=== PATIENT | female | born 1990 | race Hispanic/Latino ===

== ENCOUNTER 2017-02-16 21:01 | Observation (INO) | payer SELFPAY ==
[2017-02-16 21:39] LABS: #Basophils 0.1 thou/uL (0.0-0.2); #Eosinphils 0.3 thou/uL (0.0-0.7); #Lymphocytes 1.7 thou/uL (1.20-3.40); #Monocytes 0.3 thou/uL (0.11-0.59); #Neutrophils 5.5 thou/uL (1.40-6.50); %Basophils 0.8 % (0.0-1.0); %Eosinophils 4.2 % (0.0-10.0); %Lymphocytes 21.1 % (21.0-51.0); %Monocytes 3.3 % (0.0-10.0); Hematocrit 21.6 % (36.0-47.0); Mean Platelet Volume 8.7 fL (7.4-10.4); Red Blood Cell (RBC) Count 2.36 mill/uL (4.20-5.40); White Blood Cell (WBC) Count 7.8 thou/uL (4.8-10.8)
[2017-02-16 21:50] LABS: ALT (SGPT) 18 U/L (8-55); AST (SGOT) 17 U/L (5-34); Alkaline Phosphatase 70 U/L (40-150); Anion Gap 10 mmol/L (10-20); BUN (Urea Nitrogen) 10 mg/dL (7.0-18.7); Bilirubin, Total 0.3 mg/dL (0.2-1.2); Calc. Creatinine Clearance 0 mL/min (70-130); Calcium 8.9 mg/dL (7.8-10.44); Carbon Dioxide 26 mmol/L (22-29); Chloride 109 mmol/L (98-107); Estimated GFR-MDRD Greater than 90; Globulin 3.1 g/dL (2.4-3.5); Protein, Total 6.8 g/dL (6.0-8.3)
[2017-02-16 22:55] LABS: Bilirubin Negative (Negative); Blood, Urine Large (Negative); Glucose, Urine (Dipstick) Negative (Negative); Ketone, Urine Trace mg/dL (Negative); Nitrite Negative (Negative); Protein, Urine (Dipstick) Negative (Neg-Trace); Urobilinogen 0.2 mg/dL (0.2-1.0)
[2017-02-16 23:01] LABS: Bacteria/HPF Rare-Few HPF (None Seen); RBC/HPF GREATER THAN 50-TNTC HPF (0-3); Squamous Epithelial 0-3 HPF (0-3); WBC/HPF 0-3 HPF (0-3)
[2017-02-16 23:02] LABS: Hyaline Casts/LPF 0-3 HYALINE CAST LPF (0-3 Hyaline)
[2017-02-16] MEDS ORDERED: Tranexamic Acid 650 MG TAB PO SCH (23:30)
[2017-02-16] MEDS ORDERED: medroxyPROGESTERone Acetate 5 MG TAB PO SCH (23:45)
[2017-02-17] MEDS ORDERED: Zolpidem Tartrate 5 MG TAB PO PRN (01:04)
[2017-02-17] MEDS ORDERED: Ondansetron HCl/PF 4 MG/2 ML Vial IVP PRN (01:04)
[2017-02-17] MEDS ORDERED: Acetaminophen 325 MG TAB PO PRN (01:04)
--- NOTE | 2017-02-17 01:15 | HP ---
DATE OF ADMISSION: 02/16/2017 TIME: 2330 hours. REASON FOR ADMISSION: Menorrhagia with severe anemia, hemodynamically stable. HISTORY OF PRESENT ILLNESS: Ms. Talavera is a 26-year-old 2, para 2, well known to the [facility] with previous admissions for menorrhagia. She presents again complaining of menorrhagia for the last 29 days. She is noted to have a hematocrit of 21%. Her vital signs are stable. She has a ne gative tilt. OB AND BEEF RIBBER HISTORY: x2. No history of STDs. Patient has multiple ER presentations to both the [facility] and at [facility] with a previous admissions. She has been seen on an outpatient basis and been recommended to have a progesterone releasing IUD; however, she seems to have problems with compliance, likely secondary to financial difficulties. PAST MEDICAL HISTORY: Anemia and transfusions, multiple. PAST SURGICAL HISTORY: Jaw fracture. ALLERGIES: Denies. MEDICATIONS: Sprintec and iron. SOCIAL HISTORY: Denies tobacco, alcohol, or drug abuse. FAMILY HISTORY: Noncontributory. REVIEW OF SYSTEMS: Noncontributory. PHYSICAL EXAMINATION: GENERAL: female, pulse 100, respirations 18, blood pressure 118/72, temperature 98.6. HEENT: Within normal limits. LUNGS: Clear to auscultation bilaterally. HEART: Regular rhythm. BREASTS: Without masses bilaterally. ABDOMEN: Soft, nontender, no rebound, or guarding. PELVIC: Vulva is without lesions. Vagina has moderate menstrual flow. Pelvic, deferred at this ti me. EXTREMITIES: Without clubbing, cyanosis, or edema. LABORATORY STUDIES AND IMAGING: The patient has a hemoglobin of 6.9, hematocrit of 21.6, normal whi te count, platelet count of 300. Normal basic metabolic panel and unremarkable urinalysis. PT, PTT , and INR are not done. Previous ultrasounds were reviewed and reveal a slightly thickened endometr ium, but otherwise unremarkable. IMPRESSION: Persistent menorrhagia with anemia. PLAN: Observation status, Provera, Lysteda, IV iron. Anticipate discharge in less than [address] admission.
[2017-02-17] MEDS ORDERED: Sodium Chloride 0.9% 10 ML ONE ×3 (01:21→11:29)
[2017-02-17] MEDS: Sodium Chloride 0.9% 1,000 ML IV SCH ×2 (01:27→13:04)
[2017-02-17 02:09] VITALS: BMI 35.9
[2017-02-17 05:29] LABS: #Eosinphils 0.3 thou/uL (0.0-0.7); #Lymphocytes 2.1 thou/uL (1.20-3.40); #Monocytes 0.4 thou/uL (0.11-0.59); #Neutrophils 4.2 thou/uL (1.40-6.50); %Basophils 0.4 % (0.0-1.0); %Eosinophils 4.9 % (0.0-10.0); %Lymphocytes 29.9 % (21.0-51.0); %Monocytes 5.5 % (0.0-10.0); Mean Platelet Volume 8.8 fL (7.4-10.4); Red Blood Cell (RBC) Count 2.19 mill/uL (4.20-5.40); White Blood Cell (WBC) Count 7.1 thou/uL (4.8-10.8)
[2017-02-17 05:38] LABS: PTT 31.3 SEC (22.9-36.1)
[2017-02-17 05:42] LABS: Prothrombin Time 14.7 SEC (12.0-14.7)
--- NOTE | 2017-02-17 07:52 | PRG ---
DATE OF SERVICE: 02/17/2017 TIME OF SERVICE: 0730 SUBJECTIVE: The patient is resting well. She reports fatigue and shortness of breath when ambulati ng to the bathroom. She reports that her bleeding has decreased, but continues somewhat. PHYSICAL EXAMINATION: VITAL SIGNS: Temperature is 98.0, pulse 78, respirations 20, blood pressure 91/54. HEENT: Within normal limits. LUNGS: Clear to auscultation bilaterally. ABDOMEN: Soft and nontender. CERVICAL: Vulva is without lesions. Vagina, patient is having a small amount of bleeding with two small pads since admission to the floor. EXTREMITIES: Without clubbing, cyanosis or edema. LABORATORY STUDIES: The patient's hematocrit dropped from 21.6 to 20 percent this morning. PT, PTT and INR are within normal limits. Urine test was negative on admission. IMPRESSION: Persistent menorrhagia with anemia, unresponsive to medical therapy. PLAN: Discussed with patient options. Infed is not available in the hospital right now, it is bein g obtained by the Pharmacy and will be infused later on today. We will go ahead and give the patien t 1 unit of PRBCs secondary to symptomatic severe anemia. I discussed with patient options and will proceed with D\T\C hysteroscopy and endometrial ablation, likely with Cece later today. The pat ient understands risks and benefits of procedure including persistent bleeding, infection, perforati on and failure to control menorrhagia. We will check this patient out with Dr. Jase Manzo, OB Hospitalist, coming on at 0800 and he will perform the procedure later in the day.
[2017-02-17] MEDS ORDERED: FLU VACC QS2017-18 36 mo. & older 0.5 ML SYRINGE IM ONE (09:00)
[2017-02-17] MEDS ORDERED: medroxyPROGESTERone Acetate 5 MG TAB PO SCH (09:00)
[2017-02-17] MEDS ORDERED: Famotidine 20 MG TAB PO SCH (09:00)
[2017-02-17] MEDS: Tranexamic Acid 650 MG TAB PO SCH ×2 (10:15→15:28)
[2017-02-17] MEDS ORDERED: Midazolam HCl 2 mg/2 ml Vial ONE (13:11)
[2017-02-17] MEDS ORDERED: Fentanyl 100 MCG/2 ML VIAL ONE (13:12)
[2017-02-17] MEDS ORDERED: Dexamethasone 20 MG/5 ML VIAL ONE (13:27)
[2017-02-17] MEDS ORDERED: Ondansetron HCl/PF 4 MG/2 ML Vial ONE (13:27)
[2017-02-17] MEDS ORDERED: Metoclopramide HCl 10 MG/2 ML VIAL ONE (13:27)
[2017-02-17] MEDS ORDERED: Propofol 200 MG/20 ML VIAL ONE (13:27)
[2017-02-17] MEDS ORDERED: Lidocaine 1% PF 5 ML VIAL ONE (13:27)
[2017-02-17] MEDS ORDERED: Ibuprofen 800 MG TAB PO SCH (15:45)
[2017-02-17] MEDS ORDERED: HYDROcodone/Acetaminophen 5/325 mg Tablet PO SCH (15:45)
--- NOTE | 2017-02-17 16:56 | OP ---
DATE OF PROCEDURE: 02/17/2017 PREOPERATIVE DIAGNOSES: 1. Severe anemia. 2. Abnormal uterine bleeding. POSTOPERATIVE DIAGNOSES: 1. Severe anemia. 2. Abnormal uterine bleeding. PROCEDURE: D\T\C with hysteroscopy and Cece endometrial ablation. SURGEON: Rafael Manzo M.D. SUPERVISING DOCTOR: Damion Mcdaniel DO ANESTHESIA: General. ESTIMATED BLOOD LOSS: Less than 10 Ml. HYSTEROSCOPIC FLUID BALANCE: Negative 80. FINDINGS: Fluffy endometrium with approximately 20 mL blood clot at the os. Uterus was sounded to 9.5 cm. COMPLICATIONS: None. COUNTS: Correct. CONDITION: Stable to recovery room. INDICATIONS FOR PROCEDURE: Ms. Talavera is a 26-year-old female who has had multiple admissions to the hospital for severe anemia due to her abnormal uterine bleeding. She was transfused 1 unit of p acked red blood cells this morning and was placed on the schedule for endometrial ablation. DESCRIPTION OF PROCEDURE: After obtaining informed consent from the patient, the patient was taken to the operating room where she was confirmed self and placed under general anesthesia for a D\T\C w ith hysteroscopy and Cece ablation. The patient was placed in dorsal lithotomy position [facility]. She was prepared and draped in normal sterile fashion. With the aid of operative specul um, the cervix was visualized and approximately 20 mL blood clot mixed with mucus was removed from t he outer portion of the os for better visualization. A single-tooth tenaculum was then applied to t he anterior lip of the cervix. The uterus was sounded to 9.5 cm. The cervix was sounded to 4 cm. D\T\C was performed for sampling of the endometrium prior to the ablation, hysteroscopy was placed a nd the cavity had some clot and flurry fluffy endometrium. The Cece ablative device was then ope ze to the sterile field and the device was set at 5.5 cm. The device was then inserted into the ut erine cavity and seated and then the intracervical balloon was then insufflated and the device was t hen engaged. Once the device process was completed, it was removed from the uterine cavity and hyst eroscopy was returned back for visualization and appeared to have a good peter on the lining of the u terus. Once this was completed, the hysteroscope was then removed. Anterior lip of the cervix was inspected for bleeding after the single-tooth tenaculum was removed and found to be hemostatic. At t his point, the patient was then taken out of lithotomy position, extubated and taken to [facility]. Endometrial curettings were sent to pathology for evaluation.
[2017-02-17 18:12] VITALS: TEMP 98
[2017-02-17 18:33] VITALS: BP 109/60
--- NOTE | 2017-02-18 06:06 | DIS ---
DATE OF ADMISSION: 02/16/2017 DATE OF DISCHARGE: 02/17/2017 ADMITTING DIAGNOSES: Abnormal uterine bleeding and severe anemia. DISCHARGE DIAGNOSES: Abnormal uterine bleeding and severe anemia. PROCEDURES: Blood transfusion and endometrial ablation with hysteroscopy and dilation and curettage . HOSPITAL COURSE: The patient is a 26-year-old female who has repeatedly been admitted to the [facility] for severe anemia due to abnormal uterine bleeding. She has had poor followup outside the hospit pr and poor compliance. Upon admission, decision was made to proceed with endometrial ablation duri ng this hospitalization. After obtaining patient consent, patient was then taken to the operating r oom for the said procedure. For complete details, please refer to the operative note. During her h ospitalization, the patient has received 1 unit of packed red blood cells, starting hemoglobin is 6. 0. This evening now post-procedure, patient is having some cramping, but otherwise doing fine. The re is no bleeding at this time. The patient is going to be discharged to home. She has been given instructions to seek medical attention and will have follow up in [address] Carpenter at [facility] [place]. She is to seek medical attention sooner, if she experiences fever, increasin g pain, bleeding or foul discharge. The patient will be discharged home on ibuprofen 800 mg #20 and tramadol 50 mg #10.
== END 2017-02-17 19:19 | disposition home or self-care (01) ==
LOC: ERS 21:01 → 3SW 23:30
PROVIDERS: ADMIT Obstetrics & Gynecology; ATTEND Obstetrics & Gynecology
PROC: 0U5B8ZZ Destruction of Endometrium, Via Natural or Artificial Opening Endoscopic (ICD-10-PCS; principal; 2017-02-16)
PROC: 0UDB8ZX Extraction of Endometrium, Via Natural or Artificial Opening Endoscopic, Diagnostic (ICD-10-PCS; 2017-02-16)
DX: N85.01 Benign endometrial hyperplasia (principal); D50.0 Iron deficiency anemia secondary to blood loss (chronic); Z79.899 Other long term (current) drug therapy
CPT/HCPCS: 36415; 36430; 80053; 81003; 81015; 81025; 85025; 85610; 85730; 86850; 86900; 86901; 88305; 96360; 96361; 99285; A4216; G0378; J1100; J1750; J2001; J2250; J2405; J2704; J2765; J3010; J7050; P9016

== ENCOUNTER 2017-03-01 18:00 | Emergency (ER) | payer SELFPAY ==
[2017-03-01] MEDS ORDERED: Ciprofloxacin HCL/Dexameth Otic Drops 7.5 ml Bottle ONE (18:09)
[2017-03-01] MEDS ORDERED: Ibuprofen 200 MG TAB ONE (18:11)
== END 2017-03-01 18:15 | disposition home or self-care (01) ==
LOC: ERS 18:00
DX: H60.92 Unspecified otitis externa, left ear (principal); D64.9 Anemia, unspecified
CPT/HCPCS: 99282

== ENCOUNTER 2017-07-16 18:27 | Emergency (ER) | payer SELFPAY ==
[~2017-07-16 18:27] MED LIST: ISOVUE-370 76%-LOCM 1 ML ONE
[2017-07-16 22:21] LABS: BHCG - Serum Negative (NEGATIVE); Pregs Control Background? CLEAR/WHITE (CLR/WHITE); Pregs Control Bar Appear? YES (CONTROL BAR)
[2017-07-16 22:24] LABS: INR-International Normal Ratio 1.1; PTT 34.1 SEC (22.9-36.1); Prothrombin Time 14.7 SEC (12.0-14.7)
[2017-07-16 22:31] LABS: Hemoglobin 8.4 g/dL (12.0-16.0); Mean Corpuscular HGB CONC 29.9 g/dL (32.0-36.0); Mean Corpuscular Hemoglobin 19.8 pg (27.0-31.0); Mean Corpuscular Volume 66.2 fl (81.0-99.0); Platelet Count 440 thou/uL (130-400); RBC Distribution Width 16.7 % (11.5-14.5); Red Blood Cell (RBC) Count 4.26 mill/uL (4.20-5.40); White Blood Cell (WBC) Count 10.1 thou/uL (4.8-10.8)
[2017-07-16 22:36] LABS: ALT (SGPT) 22 U/L (8-55); AST (SGOT) 17 U/L (5-34); Albumin 4.1 g/dL (3.5-5.0); Alkaline Phosphatase 99 U/L (40-150); Anion Gap 11 mmol/L (10-20); BUN (Urea Nitrogen) 11 mg/dL (7.0-18.7); Bilirubin, Total 0.3 mg/dL (0.2-1.2); Calc. Creatinine Clearance 0 mL/min (70-130); Calcium 9.4 mg/dL (7.8-10.44); Carbon Dioxide 24 mmol/L (22-29); Chloride 104 mmol/L (98-107); Estimated GFR-MDRD Greater than 90; Glucose 108 mg/dL (70-105); Lipase 21 U/L (8-78); Protein, Total 8.1 g/dL (6.0-8.3); Sodium 135 mmol/L (136-145)
[2017-07-16 22:51] LABS: Bilirubin Negative (Negative); Blood, Urine Large (Negative); Clarity TURBID (Clear); Glucose, Urine (Dipstick) Negative (Negative); Leukocyte Moderate (Negative); Nitrite Negative (Negative); Protein, Urine (Dipstick) 30 mg/dL (Neg-Trace); Specific Gravity, Urine 1.023 (1.002-1.036)
[2017-07-16 22:54] LABS: #Eosinphils 0.2 thou/uL (0.0-0.7); #Lymphocytes 1.4 thou/uL (1.20-3.40); #Monocytes 0.4 thou/uL (0.11-0.59); #Neutrophils 8.1 thou/uL (1.40-6.50); %Basophils 0.1 % (0.0-1.0); %Lymphocytes 13.6 % (21.0-51.0); %Monocytes 3.8 % (0.0-10.0); %Neutrophils 80.5 % (42.0-75.0); Anisocytosis SLIGHT = 6-15 cells (100X) (0-5/hpf); Elliptocytes SLIGHT = 2-5 cells (100X) (0-1/hpf); MDiff Complete? YES; Microcytosis SLIGHT = 6-15 cells (100X) (0-5/hpf)
[2017-07-16 22:57] LABS: Bacteria/HPF None Seen HPF (None Seen); Hyaline Casts/LPF 0-3 HYALINE CAST LPF (0-3 Hyaline)
[2017-07-16 22:58] LABS: RBC/HPF GREATER THAN 50-TNTC HPF (0-3); Yeast-AUWi Flag 949.7 (0-25.0)
[2017-07-16 22:59] LABS: WBC/HPF 21-50 HPF (0-3)
[2017-07-16 23:00] LABS: Yeast-All Forms None Seen HPF (None Seen)
--- NOTE | 2017-07-16 23:47 | CT ---
CT OF THE ABDOMEN AND PELVIS WITH CONTRAST: 07/16/17 COMPARISON: None. HISTORY: Left lower quadrant abdominal pain for three days with defecation. TECHNIQUE: Multiple contiguous axial images were obtained in a CT of the abdomen and pelvis with contrast. Coron al reformats were performed. FINDINGS: The liver, gallbladder, kidneys, adrenal glands, spleen, and pancreas are unremarkable. No free air, free fluid, or stranding changes are seen in the abdomen or pelvis. The uterus is unremarkable. The right ovary is unremarkable. The left ovary is enlarged and contains numerous follicles measuring up to 2.9 cm in size. No abnormality is seen within the colon or small b owel. No abdominal or pelvic lymphadenopathy are seen. The visualized inferior thorax, osseous structures, and abdominal wall soft tissues are unremarkable. IMPRESSION: Nonspecific enlargement of the left ovary which contains numerous follicles. No other intra-abdominal /pelvic abnormality is seen. POS: [facility]
[2017-07-17] MEDS ORDERED: Ketorolac Tromethamine 30 MG/ML VIAL ONE (01:45)
--- NOTE | 2017-07-17 08:19 | ULT ---
PRELIMINARY REPORT/[facility]/EMERGENCY AFTER HOURS PROCEDURE: EXAM: US Pelvis Complete, Transabdominal CLINICAL HISTORY: 26 years old, female; Pain and signs and symptoms; Menstruation abnormalities; Excessive menstruation ; With irregular cycle; Pelvic pain; Prior surgery; Surgery date: 1-6 months; Surgery type: Uterine ablation 02/03 TECHNIQUE: Real-time transabdominal pelvic ultrasound (complete) with image documentation. COMPARISON: No relevant prior studies available. FINDINGS: The uterus measures 12.3 cm in length. There is no visible focal myometrial mass. There is no intrauterine fluid. Endometrial thickness is 14-15 mm, upper normal to mildly prominent. Very small amount of cul-de-sac fluid. The right ovary appears unremarkable. Several dominant follicles/small cysts involving the left ovary. Largest measures 34 x 23 x 26 mm. Blood flow detected in each ovary. The urinary bladder was not completely evaluated/imaged at this time. IMPRESSION: Several dominant follicles/small cysts involving the left ovary. Largest measures 34 x 23 x 26 mm. Borderline to mildly prominent endometrium. Very small amount of cul-de-sac fluid. Other details discussed above. EXAM: US Pelvis, Transvaginal CLINICAL HISTORY: 26 years old, female; Pain and signs and symptoms; Menstruation abnormalities; Excessive menstruation ; With irregular cycle; Pelvic pain; Prior surgery; Surgery date: 1-6 months; Surgery type: Uterine ablation 02/03 TECHNIQUE: Real-time transvaginal pelvic ultrasound (complete) with image documentation. Transvaginal imaging wa s used for better evaluation of the endometrium and adnexa. COMPARISON: No relevant prior studies available. FINDINGS: The uterus measures 12.3 cm in length. There is no visible focal myometrial mass. There is no intrauterine fluid. Endometrial thickness is 14-15 mm, upper normal to mildly prominent. Very small amount of cul-de-sac fluid. The right ovary appears unremarkable. Several dominant follicles/small cysts involving the left ovary. Largest measures 34 x 23 x 26 mm. Blood flow detected in each ovary. The urinary bladder was not completely evaluated/imaged at this time. Endovaginal scanning provided better visualization/evaluation of the endometrium and ovarian/adnexal findings as discussed above. IMPRESSION: Several dominant follicles/small cysts involving the left ovary. Largest measures 34 x 23 x 26 mm. Borderline to mildly prominent endometrium. Very small amount of cul-de-sac fluid. Other details discussed above. Thank you for allowing us to participate in the care of your patient. Dictated and Authenticated by: Harvey Connolly MD 07/17/2017 3:01 AM Central Time ([place] & [place]) FINAL REPORT TRANSABDOMINAL AND TRANSVAGINAL PELVIC ULTRASOND WITH HERNDON SCALE AND COLOR FLOW AND SPECTRAL DOPPLER IMAGING: Date: 07/17/17 FINDINGS/IMPRESSION: I agree with the preliminary report given by Dr. Harvey Connolly of [facility]. POS: [facility]
== END 2017-07-17 03:39 | disposition home or self-care (01) ==
LOC: ERS 18:27
DX: N83.202 Unspecified ovarian cyst, left side (principal); N93.8 Other specified abnormal uterine and vaginal bleeding; D64.9 Anemia, unspecified; Z79.899 Other long term (current) drug therapy
CPT/HCPCS: 36415; 74177; 76856; 80053; 81003; 81015; 83690; 84703; 85025; 85610; 85730; 86850; 86900; 86901; 87086; 96372; 96374; J1885

== ENCOUNTER 2017-07-31 09:26 | Emergency (ER) | payer SELFPAY ==
[2017-07-31 09:58] LABS: #Basophils 0.1 thou/uL (0.0-0.2); #Eosinphils 0.2 thou/uL (0.0-0.7); #Lymphocytes 1.3 thou/uL (1.20-3.40); #Monocytes 0.5 thou/uL (0.11-0.59); #Neutrophils 5.9 thou/uL (1.40-6.50); %Eosinophils 2.4 % (0.0-10.0); %Lymphocytes 16.4 % (21.0-51.0); %Monocytes 6.4 % (0.0-10.0); %Neutrophils 73.8 % (42.0-75.0); Hemoglobin 9.6 g/dL (12.0-16.0); Mean Corpuscular HGB CONC 30.2 g/dL (32.0-36.0); Mean Corpuscular Hemoglobin 21.2 pg (27.0-31.0); Mean Corpuscular Volume 70.2 fl (81.0-99.0); Mean Platelet Volume 10.4 fL (7.4-10.4); Platelet Count 426 thou/uL (130-400); RBC Distribution Width 19.1 % (11.5-14.5); Red Blood Cell (RBC) Count 4.51 mill/uL (4.20-5.40)
[2017-07-31 10:18] LABS: ALT (SGPT) 20 U/L (8-55); AST (SGOT) 14 U/L (5-34); Albumin 3.8 g/dL (3.5-5.0); Alkaline Phosphatase 104 U/L (40-150); Anion Gap 10 mmol/L (10-20); BUN (Urea Nitrogen) 9 mg/dL (7.0-18.7); Bilirubin, Total 0.4 mg/dL (0.2-1.2); Calc. Creatinine Clearance 0 mL/min (70-130); Calcium 9.4 mg/dL (7.8-10.44); Carbon Dioxide 25 mmol/L (22-29); Chloride 105 mmol/L (98-107); Estimated GFR-MDRD Greater than 90; Glucose 110 mg/dL (70-105); Protein, Total 7.8 g/dL (6.0-8.3); Sodium 136 mmol/L (136-145)
[2017-07-31 11:08] LABS: Bilirubin Negative (Negative); Blood, Urine Large (Negative); Glucose, Urine (Dipstick) Negative (Negative); Leukocyte Trace (Negative); Nitrite Negative (Negative); Protein, Urine (Dipstick) 30 mg/dL (Neg-Trace); Specific Gravity, Urine 1.015 (1.005-1.030)
[2017-07-31 11:20] LABS: Clarity CLEAR (Clear); Pregnancy Test - Urine (BHCG) Negative (Negative); Pregu Control Background? CLEAR/WHITE (CLR/WHITE); Pregu Control Bar Appear? YES (CONTROL BAR); Specific Gravity 1.015 (1.002-1.036)
[2017-07-31 11:22] LABS: Bacteria/HPF None Seen HPF (None Seen); Hyaline Casts/LPF NONE SEEN LPF (0-3 Hyaline); RBC/HPF 21-50 HPF (0-3); Squamous Epithelial 0-3 HPF (0-3); WBC/HPF 0-3 HPF (0-3)
[2017-07-31 11:25] LABS: BHCG - Serum Negative (NEGATIVE)
[2017-07-31 11:26] LABS: Pregs Control Background? CLEAR/WHITE (CLR/WHITE); Pregs Control Bar Appear? YES (CONTROL BAR)
--- NOTE | 2017-07-31 12:29 | CT ---
CT ABDOMEN NONCONTRAST CT PELVIS NONCONTRAST: (urolithiasis protocol) DATE: 07/31/17. TIME: 11:46 a.m. HISTORY: A 26-year-old female with left lower quadrant abdominal pain. COMPARISON: Contrast-enhanced CT of 07/16/17. TECHNIQUE: IV injection of iodinated contrast media: none Oral contrast media: none FINDINGS: Other than for urolithiasis, the lack of IV and oral contrast limits the evaluation. Again noted is the multilobulated left adnexal mass. This has slightly increased in size from previo us measurements of approximately 5.5 x 6 x 5.5 cm, to current measurements of 5.5 x 6.5 x 6.5 cm. Th e previous contrast-enhanced CT demonstrated multiple mixed tiny hypodense (probably cystic) componen ts interspersed with soft tissue density components. The largest hypodense component was a 3 cm cyst ic lesion. There is a small amount of fat stranding and free fluid fanning out superiorly from the s uperior edge of this lesion. The left ovarian vein, connected to this, is slightly dilated, but the right ovarian vein is also slightly dilated. There is a minimal amount of free fluid in the cul-de-s ac. Uterus is slightly large, suggestive of multigravida status. There are no renal, ureteral, or b ladder calculi. No hydronephrosis. Urinary bladder volume is currently smaller than on the prior CT , and that could be responsible for the mild apparent mural thickening of the bladder on the current CT. There is no pleural effusion or pneumoperitoneum. No signs of acute colonic diverticulitis. No small bowel dilation. Within the limitations of a noncontrast CT, no abnormality is identified invo lving the appendix, abdominal aorta, bilateral kidneys, adrenals, pancreas, liver, or spleen. IMPRESSION: 1. Slight interval growth of the large, now approximately 6.5 cm multilobulated left adnexal mass lo cated in the left lower quadrant of the abdomen. This is suspicious for ovarian carcinoma (such as o varian cystadenocarcinoma), despite the patient's young age. LABVIEW PROGRAMMER consultation is recommended. 2. No urolithiasis or obstructive uropathy. Code T JN R POS: [facility]
--- NOTE | 2017-07-31 14:37 | ULT ---
ULTRASOUND PELVIC ULTRASOUND TRANSVAGINAL DOPPLER DUPLEX: DATE: 07/31/17. TIME: 1:45 p.m. HISTORY: A 26-year-old female with left lower quadrant abdominal pain and left adnexal mass. Dr. Lopez reported the finding highly suspicious for left ovarian cancer by telephone to Dr. Velasquez of [facility] emergency department at 2:18 p.m. on 07/31/17. TECHNIQUE: Transabdominal transducer used to evaluate intrapelvic contents using the urinary bladder as an acous tic window. Endovaginal transducer used to visualize intrapelvic contents in greater detail. Color fl ow Doppler and Pulsed Doppler spectral waveform analysis of ovaries. FINDINGS: The size of the left adnexal mass is under-represented on the ultrasound images: due to the particula r positioning of the transducers, it measures smaller than on the CT. On the CT, this lobulated mass has dimensions of approximately 6.5 x 6.5 x 5.5 cm. One of the ultrasound images demonstrates a quinton id component of this mass invaginating into a complex cystic component. There is blood flow demonstra alexandra in the solid component, both venous and arterial. Especially on the contrast-enhanced CT of 07/16, this mass is very suspicious for ovarian carcinoma, despite the patient's young age. The contra lateral right ovary is normal in size, measuring 3 x 2.5 x 1.5 cm. The uterus is 11.5 x 5 x 7.5 cm. Endometrial stripe is 1.1 cm (11 mm). No significant free fluid in the cul-de-sac. IMPRESSION: Complex solid and cystic left ovarian mass, suspicious for ovarian carcinoma (such as cystadenocarcin tyrell). CODE REEMA JN R POS: [facility]
== END 2017-07-31 15:31 | disposition home or self-care (01) ==
LOC: ERS 09:26
DX: N83.9 Noninflammatory disorder of ovary, fallopian tube and broad ligament, unspecified (principal)
CPT/HCPCS: 36415; 74176; 76856; 80053; 81003; 81015; 81025; 82105; 82378; 83690; 84702; 84703; 85025; 86304; 86850; 86900; 86901

== ENCOUNTER 2017-08-06 16:02 | Observation (INO) | payer SELFPAY ==
[2017-08-06 16:56] LABS: #Eosinphils 0.1 thou/uL (0.0-0.7); #Lymphocytes 1.5 thou/uL (1.20-3.40); #Monocytes 0.4 thou/uL (0.11-0.59); %Basophils 0.3 % (0.0-1.0); %Eosinophils 1.5 % (0.0-10.0); %Lymphocytes 16.7 % (21.0-51.0); %Monocytes 4.4 % (0.0-10.0); %Neutrophils 77.1 % (42.0-75.0); Hemoglobin 8.6 g/dL (12.0-16.0); Mean Corpuscular Hemoglobin 21.4 pg (27.0-31.0); Mean Corpuscular Volume 69.2 fl (81.0-99.0); Mean Platelet Volume 9.8 fL (7.4-10.4); Platelet Count 444 thou/uL (130-400); RBC Distribution Width 18.8 % (11.5-14.5); Red Blood Cell (RBC) Count 4.01 mill/uL (4.20-5.40)
--- NOTE | 2017-08-06 17:10 | RAD ---
CHEST ONE VIEW PORTABLE: 08/06/17 HISTORY: 27-year-old female with dyspnea, shortness of breath and chest pain. COMPARISON: 05/21/10. FINDINGS: Heart size is within normal limits. The lungs are clear. IMPRESSION: No acute intrathoracic disease. POS: [facility]
[2017-08-06 17:17] LABS: ALT (SGPT) 17 U/L (8-55); AST (SGOT) 14 U/L (5-34); Albumin 3.7 g/dL (3.5-5.0); Alkaline Phosphatase 107 U/L (40-150); Anion Gap 14 mmol/L (10-20); BUN (Urea Nitrogen) 13 mg/dL (7.0-18.7); Bilirubin, Total 0.2 mg/dL (0.2-1.2); Calc. Creatinine Clearance 0 mL/min (70-130); Calcium 9.3 mg/dL (7.8-10.44); Carbon Dioxide 23 mmol/L (22-29); Chloride 106 mmol/L (98-107); Estimated GFR-MDRD Greater than 90; Globulin 4.3 g/dL (2.4-3.5); Glucose 131 mg/dL (70-105); Potassium 3.9 mmol/L (3.5-5.1); Sodium 139 mmol/L (136-145)
[2017-08-06 18:14] LABS: BHCG - Serum Negative (NEGATIVE); Pregs Control Background? CLEAR/WHITE (CLR/WHITE); Pregs Control Bar Appear? YES (CONTROL BAR)
[2017-08-06] MEDS ORDERED: Acetaminophen 325 MG TAB ONE (18:42)
[2017-08-06 19:11] LABS: Bilirubin Negative (Negative); Blood, Urine Large (Negative); Clarity CLOUDY (Clear); Glucose, Urine (Dipstick) Negative (Negative); Leukocyte Trace (Negative); Nitrite Negative (Negative); Protein, Urine (Dipstick) Trace mg/dL (Neg-Trace); Specific Gravity, Urine 1.031 (1.002-1.036); pH, Urine 6.5 (5.0-9.0)
[2017-08-06 19:14] LABS: Bacteria/HPF Rare-Few HPF (None Seen); Hyaline Casts/LPF 0-3 HYALINE CAST LPF (0-3 Hyaline); Pathc Cast-AUWi Flag 0.29 (0-2.49); RBC/HPF GREATER THAN 50-TNTC HPF (0-3); Squamous Epithelial 0-3 HPF (0-3)
--- NOTE | 2017-08-06 19:43 | ULT ---
TRANSABDOMINAL AND TRANSVAGINAL PELVIC ULTRASOUND: 08/06/17 INDICATION: Pelvic pain. TECHNIQUE: Gagnon scale, color doppler with vascular duplex with spectral analysis is performed. COMPARISON: CT of the abdomen and pelvis dated 07/31/17 and pelvic ultrasound dated 07/31/17. FINDINGS: The uterus measures 11.9 x 6.6 x 7.7 cm. The endometrial stripe measures 2.4 cm. The left ovary is enlarged and complex appearing measuring 5.2 x 5.1 x 3.5 cm with internal vasculari ty. The right ovary is not visualized. No free fluid is evident. IMPRESSION: 1. Enlarged heterogeneous appearance of the left ovary. The left ovarian mass is not fully seen on this ultrasound examination as seen on the comparison CT examination on 07/31/17. A nonemergent fol lowup MR of the pelvis with and without contrast is recommended for additional characterization. 2. Nonvisualization of the right ovary. 3. Nonspecific mild enlargement of the uterus. POS: [facility]
[2017-08-06] MEDS ORDERED: Ondansetron ODT 4 MG TAB SL PRN (22:27)
[2017-08-06] MEDS ORDERED: Acetaminophen 325 MG TAB PO PRN (22:27)
[2017-08-06] MEDS ORDERED: Ondansetron HCl/PF 4 MG/2 ML Vial IVP PRN (22:27)
[2017-08-06] MEDS ORDERED: medroxyPROGESTERone Acetate 5 MG TAB PO SCH (23:00)
[2017-08-06] MEDS ORDERED: Tranexamic Acid 650 MG TAB PO SCH (23:00)
[2017-08-06] MEDS: Dextrose 5%-Lactated Ringers 1,000 ML IV SCH (23:04)
[2017-08-06] MEDS ORDERED: Sodium Chloride 0.9% 10 ML ONE (23:14)
--- NOTE | 2017-08-07 02:03 | HP ---
DATE OF ADMISSION: 08/06/2017 REGULAR PHYSICIAN: Itzel Carpenter D.O. ADMITTING PHYSICIAN: Gurwinder Burgos M.D. CHIEF COMPLAINT: Heavy bleeding, shortness of breath. HISTORY OF PRESENT ILLNESS: Ms. Talavera is a 27-year-old G2, P2, who has had a 3-month his tory of heavy vaginal bleeding. She has had multiple visits to the emergency room and was seen in [facility] and apparently given 2 units of packed red blood cells. She is currently followed by Dr. Phillip de los santos who has her on Sprintec 2 tablets daily. She states that her heavy bleeding started earlier today and she became concerned with the amount of bleeding she was having and thought that she might even be short of breath. She denies nausea, vomiting, fever, or chills. PAST OBSTETRICAL HISTORY: Includes two vaginal deliveries at term. PAST MEDICAL HISTORY: Unremarkable. CURRENT MEDICATIONS: Sprintec one tablet twice a day. PAST SURGICAL HISTORY: Jaw fracture. ALLERGIES: No known allergies. SOCIAL HISTORY: Denies tobacco, alcohol, or drug use. FAMILY HISTORY: Denies pelvic malignancy. REVIEW OF SYSTEMS: Heavy vaginal bleeding as above. Positive for initial shortness of breath, now r esolved. She denies nausea, vomiting, fever, or chills. PHYSICAL EXAMINATION: VITAL SIGNS: On initial presentation, blood pressure 108/74, pulse 101, respirations 20, temperature 98.4, O2 sat on room air 99%. Most recent vital signs show a blood pressure of 109/73 with a pulse of 87, O2 saturation is 100% on room air. GENERAL: She is well appearing. She is in no acute distress. CHEST: Clear to auscultation. CARDIOVASCULAR: Regular rate and rhythm. ABDOMEN: Soft, nontender. There is no guarding or rebound. PELVIC: On bimanual exam, there is blood in the vault, but there is no heavy active bleeding. The u terus appears enlarged to bimanual exam. LABORATORY DATA: On admission, CBC shows a white count of 9.0, hemoglobin and hematocrit 8.6 and 27. 7, respectively with a platelet count of 444. Her urine test is negative. Chest x-ray don e in the emergency room shows no evidence of active disease. Sonogram done tonight shows an 11 cm ut erus with a 2.5 cm endometrial stripe. There is a complex left adnexal mass seen in the imaging [facility]. ASSESSMENT: 1. Menorrhagia. 2. Anemia. 3. Left adnexal mass. PLAN: I have discussed the case with Dr. Carpenter and at this time, we will go ahead and put the patie nt in for 23-hour observation and follow up with hemoglobin early in the morning. We will also begin Lysteda 1300 mg t.i.d. along with Provera 20 mg b.i.d. She will be watched carefully.
[2017-08-07 03:58] VITALS: BMI 33.8
[2017-08-07 05:35] LABS: Hemoglobin 6.7 g/dL (12.0-16.0)
[2017-08-07] MEDS: Dextrose 5%-Lactated Ringers 1,000 ML IV SCH (06:16)
--- NOTE | 2017-08-07 07:29 | PRG ---
DATE OF SERVICE: 08/07/2017 SUBJECTIVE: The patient reports that she has continued to have some bleeding, but not as heavy as be fore. She denies a headache this morning. OBJECTIVE: VITAL SIGNS: This morning 95/49, pulse 78, respirations 16, temperature 97.8. ABDOMEN: Soft and nontender. PELVIC: She has had some vaginal bleeding through the night. LABORATORY DATA: This morning, hemoglobin returns at 6.7. ASSESSMENT: 1. Menorrhagia. 2. Anemia. PLAN: At this time, I visited with Dr. Carpenter. The plan is to make her n.p.o. and transfuse her wit h packed red blood cells. There is the possibility that she will have a D&C today. The patient unde rstands and agrees with this plan.
[2017-08-07] MEDS ORDERED: medroxyPROGESTERone Acetate 5 MG TAB PO SCH ×2 (09:00→15:00)
[2017-08-07] MEDS: Ferrous Sulfate 325 MG TAB PO SCH ×2 (10:13→17:04)
[2017-08-07] MEDS: Tranexamic Acid 650 MG TAB PO SCH ×3 (10:14→21:29)
--- NOTE | 2017-08-07 11:11 | PRG ---
DATE OF SERVICE: 08/07/2017 Hospital day #2. HISTORY OF PRESENT ILLNESS: Ms. Talavera is a 27-year-old who presented with heavy vaginal bleeding, found to be anemic and was kept for observation with medical management. On review of her chart, pt had hysteroscopy D&C with endometrial ablation in 01/2017 with pathology consistent with complex endometrial hyperplasia without atypia. The patient also noted to have a complex left adnexal mass which was first seen at last ED visit. SUBJECTIVE: The patient reports that her bleeding has decreased with medical management Lysteda and Provera. She did change 2 pads overnight. Denies any clots or pain this morning. She has ambulated with minimal dizziness. OBJECTIVE: VITAL SIGNS: Stable. Most recent blood pressure is 95/49, heart rate is 78, respiratory rate 18, temperature is 98.6. GENERAL: In no acute distress. CARDIOVASCULAR: Regular rate and rhythm. RESPIRATORY: Unlabored breathing, clear to auscultation bilaterally. ABDOMEN: Soft, nontender, no rebound or guarding. EXTREMITIES: No edema. Negative Homans'. LABORATORY DATA: Hemoglobin was 8.6 on 08/06/2017 and 6.7 on 08/07/2017, platelet is 444. Imaging: ES 2.5 cm and complex left adnexal mass. ASSESSMENT: 1. 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 2. Anemia. 3. Left adnexal mass. PLAN: Discussed with patient management options. She has a longstanding history of abnormal uterine bleeding resulting in anemia requiring multiple transfusions with complex hyperplasia without atypia. Pt had an endometrial ablation which has failed at the time of this diagnosis. She never completed PG therapy as she intermittently took OCPs due to lack of menses for several months after ablation in 01/2017. Will transfused 2 units of PRBCs for her anemia. Her bleeding has decreased with the medical management she received overnight; however, the patient is being kept n.p.o. at this time as she may require surgical therapy with a dilation and curettage. Due to her pathology in 01/2017 with new acute bleeding causing anemia and recurrent thickened ES despite ablation with adnexal mass, recommended a dx hysteroscopy with D&C today , pt amenable. All R/B/A/I reviewed. We also addressed the concern for the adnexal mass as well. The patient currently does not have acute abdominal signs. Would recommend tumor markers due to a description of a solid component of the mass which were ordered, suspicion for possible granulosa cell tumor based on prior dx of hyperplasia with no RFs and new adnexal mass. The patient may possibly need a diagnostic laparoscopy in the future for evaluation of this adnexal mass, however, prefer to have tumor markers back prior to this if needed. The full detail of the sonogram and laboratory findings were discussed with the patient today. She is amenable to the plan. We will continue her Lysteda and increase the Provera to 3 times daily dosing. She has also been given information of [employer] assistance program if pathology is benign or hyperplasia without atypia. We will also have Social Work see the patient today to help with funding options. [employer]
[2017-08-07] MEDS ORDERED: Fentanyl 100 MCG/2 ML VIAL ONE ×2 (13:21→14:48)
[2017-08-07] MEDS ORDERED: Midazolam HCl 2 mg/2 ml Vial ONE (13:21)
[2017-08-07] MEDS ORDERED: Promethazine HCl 25 MG/ML VIAL SLOW IVP PRN ×2 (15:02)
[2017-08-07] MEDS ORDERED: Promethazine HCl 25 MG/ML VIAL IM PRN ×2 (15:02)
[2017-08-07] MEDS ORDERED: Ondansetron HCl/PF 4 MG/2 ML Vial IVP PRN ×2 (15:02)
[2017-08-07] MEDS ORDERED: PHENYLEPHRINE-NS 100 MCG/ML 10 ML SYRINGE ONE (17:00)
[2017-08-07] MEDS ORDERED: Ondansetron HCl/PF 4 MG/2 ML Vial ONE (17:00)
[2017-08-07] MEDS ORDERED: Lidocaine 1% PF 5 ML VIAL ONE (17:00)
[2017-08-07] MEDS ORDERED: PROPOFOL 200 MG/20 ML VIAL ONE (17:00)
[2017-08-07] MEDS ORDERED: Dexamethasone 20 MG/5 ML VIAL ONE ×2 (17:00)
[2017-08-07] MEDS ORDERED: Succinylcholine Chloride 20 MG/ML 10 ml SYRINGE FS ONE (17:00)
[2017-08-07] MEDS ORDERED: Acetaminophen 325 MG TAB PO PRN (19:48)
[2017-08-07 21:07] VITALS: BP 104/58
[2017-08-07 22:07] VITALS: TEMP 98.5
[2017-08-07 22:29] LABS: Hemoglobin 9.3 g/dL (12.0-16.0); Mean Corpuscular Hemoglobin 22.9 pg (27.0-31.0); Mean Corpuscular Volume 71.5 fl (81.0-99.0); Mean Platelet Volume 9.5 fL (7.4-10.4); Platelet Count 346 thou/uL (130-400); RBC Distribution Width 19.3 % (11.5-14.5); Red Blood Cell (RBC) Count 4.09 mill/uL (4.20-5.40); White Blood Cell (WBC) Count 10.5 thou/uL (4.8-10.8)
--- NOTE | 2017-08-07 23:35 | OP ---
PREOPERATIVE DIAGNOSES: 1. Symptomatic anemia. 2. Abnormal uterine bleeding. 3. History of endometrial hyperplasia without atypia. 4. Left adnexal mass. POSTOPERATIVE DIAGNOSES: 1. Symptomatic anemia. 2. Abnormal uterine bleeding. 3. History of endometrial hyperplasia without atypia. 4. Left adnexal mass. PROCEDURES: 1. Diagnostic hysteroscopy. 2. Dilation and curettage. SURGEON: Itzel Carpenter D.O. ESTIMATED BLOOD LOSS: 50 Ml. IV FLUIDS: 400 mL. URINE OUTPUT: 200 mL. ANESTHESIA: General. COMPLICATIONS: None. INDICATIONS FOR THE PROCEDURE: Ms. Radha Talavera is a 27-year-old G2, P2, who presented to the emergency department yesterday with heavy vaginal bleeding. The patient has a history of endometrial hyperplasia without atypia with poor followup. She had an attempted ablation in the fall of 2016, which has failed resulting in heavy bleeding. She also was found to be anemic with a hemoglobin of 6.7 after observation. Therefore, the patient was counseled and 2 units of packed red blood cells were administered. She was also started on progesterone , Lysteda and iron supplementation. With medical therapy, her bleeding did decrease; however, did not cease. Due to her history of heavy bleeding requiring transfusions, a dilation and curettage was recommended, also to evaluate the endometrial pathology to assure that the hyperplasia, that which was diagnosed previously, has been resolved. The left adnexal mass was also discussed with the patient; however, due to imaging recommended to get tumor markers back prior to surgical procedures. Therefore, just the dilation and curettage were performed at this point. PROCEDURE IN DETAIL: She was brought to the operating room and placed under general anesthesia. The patient was placed in dorsal lithotomy position using Amrik stirrups. She was prepped and draped in sterile fashion. An official timeout was performed. Single-sided speculum was placed into the vagina. Anterior aspect of the cervix was grasped using a single-tooth tenaculum. The cervical canal was dilated using Erick dilators. The uterus was sounded to be approximately 10 cm uterus. The TruClear hysteroscope was inserted into the endometrial canal, noting proliferative-appearing endometrium and bilateral fallopian tube ostia. The hysteroscope was then removed. A sharp curettage was performed in circumferential fashion and collected the tissue, which was sent for pathology. The instruments were then removed from the vagina. The patient was placed back in supine position. There were no complications. The patient was extubated without difficulty. All counts were correct x2. She was transferred to the recovery room in hemodynamically stable condition. [facility]
--- NOTE | 2017-08-08 01:10 | DIS ---
DATE OF ADMISSION: 08/06/2017 DATE OF DISCHARGE: 08/07/2017 ADMISSION DIAGNOSES: 1. Symptomatic anemia. 2. Abnormal uterine bleeding with a history of complex endometrial hyperplasia without atypia. 3. Left ovarian mass. DISCHARGE DIAGNOSES: 1. Symptomatic anemia. 2. Abnormal uterine bleeding with a history of complex endometrial hyperplasia without atypia. 3. Left ovarian mass. ADMISSION PHYSICIAN: Gurwinder Burgos MD DISCHARGE PHYSICIAN: Itzel Carpenter, CONDITION: Stable. CODE: FULL. BRIEF HOSPITAL COURSE: Ms. Radha Talavera is a 27-year-old who was admitted for heavy abnormal uterine bleeding and symptomatic anemia. She underwent a transfusion of 2 units of packed red blood cells with an appropriate rise. Her hemoglobin was 6.7, after transfusion was 9.3. During her hospital course, she also underwent a diagnostic hysteroscopy with dilation and curettage due to her history of endometrial hyperplasia with a failed prior endometrial ablation and a thickened endometrial stripe on sonogram as well as heavy vaginal bleeding. The pathology from her procedure is still pending. The patient also underwent evaluation of tumor markers due to the left ovarian mass, which are all pending at this time. The patient denies any acute abdominal pain and her bleeding has subsided after the dilation and curettage. Therefore, she is stable for discharge home with appropriate medications and followup. DISCHARGE MEDICATIONS: 1. Provera 10 mg with instructions to take two tablets three times daily for 7 days, followed by 1 tablet daily 30 days. 2. Ultram 50 mg 1 tablet q.6 hours p.r.n. for pain. 3. Ferrous sulfate 325 mg t.i.d. 90 tablets with 2 refills. FOLLOWUP: The patient will have follow up in 1 week for review of pathology results and determine a plan of care regarding left adnexal mass and abnormal bleeding with history of anemia. [facility], [place]
== END 2017-08-07 22:38 | disposition home or self-care (01) ==
LOC: ERS 16:02 → 3SW 21:20
PROVIDERS: ADMIT Obstetrics & Gynecology; ATTEND Obstetrics & Gynecology
PROC: 0UDB7ZX Extraction of Endometrium, Via Natural or Artificial Opening, Diagnostic (ICD-10-PCS; principal; 2017-08-07)
PROC: 0UJD8ZZ Inspection of Uterus and Cervix, Via Natural or Artificial Opening Endoscopic (ICD-10-PCS; 2017-08-07)
DX: N85.8 Other specified noninflammatory disorders of uterus (principal); D64.9 Anemia, unspecified; N92.0 Excessive and frequent menstruation with regular cycle; N83.9 Noninflammatory disorder of ovary, fallopian tube and broad ligament, unspecified; Z79.3 Long term (current) use of hormonal contraceptives; Z98.890 Other specified postprocedural states
CPT/HCPCS: 36415; 36430; 71045; 76856; 80053; 81003; 81015; 82105; 83520; 83615; 84702; 84703; 85014; 85018; 85025; 86304; 86336; 86850; 86900; 86901; 88305; 93005; 94760; 96360; 96361; 96374; A4216; G0378; J1100; J2001; J2250; J2405; J2704; J3010; P9016

== ENCOUNTER 2017-08-28 16:46 | Emergency (ER) | payer MEDICAID ==
[2017-08-28 17:54] LABS: #Eosinphils 0.1 thou/uL (0.0-0.7); #Lymphocytes 1.4 thou/uL (1.20-3.40); #Monocytes 0.4 thou/uL (0.11-0.59); #Neutrophils 3.8 thou/uL (1.40-6.50); %Basophils 0.2 % (0.0-1.0); %Eosinophils 2.1 % (0.0-10.0); %Lymphocytes 24.5 % (21.0-51.0); %Monocytes 7.1 % (0.0-10.0); %Neutrophils 66.2 % (42.0-75.0); Hemoglobin 7.2 g/dL (12.0-16.0); Mean Corpuscular HGB CONC 31.2 g/dL (32.0-36.0); Mean Corpuscular Hemoglobin 23.4 pg (27.0-31.0); Mean Corpuscular Volume 74.8 fl (81.0-99.0); Mean Platelet Volume 9.5 fL (7.4-10.4); Platelet Count 389 thou/uL (130-400); RBC Distribution Width 18.8 % (11.5-14.5); Red Blood Cell (RBC) Count 3.09 mill/uL (4.20-5.40); White Blood Cell (WBC) Count 5.7 thou/uL (4.8-10.8)
[2017-08-28 17:59] LABS: BHCG - Serum Negative (NEGATIVE); Pregs Control Background? CLEAR/WHITE (CLR/WHITE); Pregs Control Bar Appear? YES (CONTROL BAR)
[2017-08-28 18:16] LABS: ALT (SGPT) 14 U/L (8-55); AST (SGOT) 17 U/L (5-34); Albumin 3.7 g/dL (3.5-5.0); Alkaline Phosphatase 86 U/L (40-150); Anion Gap 12 mmol/L (10-20); BUN (Urea Nitrogen) 6 mg/dL (7.0-18.7); Bilirubin, Total 0.3 mg/dL (0.2-1.2); Calc. Creatinine Clearance 0 mL/min (70-130); Calcium 8.8 mg/dL (7.8-10.44); Carbon Dioxide 21 mmol/L (22-29); Chloride 109 mmol/L (98-107); Estimated GFR-MDRD Greater than 90; Globulin 3.4 g/dL (2.4-3.5); Glucose 83 mg/dL (70-105); Protein, Total 7.1 g/dL (6.0-8.3); Sodium 138 mmol/L (136-145)
== END 2017-08-28 20:29 | disposition home or self-care (01) ==
LOC: ERS 16:46
DX: N92.0 Excessive and frequent menstruation with regular cycle (principal); Z87.42 Personal history of other diseases of the female genital tract; D64.9 Anemia, unspecified; Z79.899 Other long term (current) drug therapy
CPT/HCPCS: 36415; 80053; 84703; 85025; 86850; 86900; 86901; 93005; 96360

== ENCOUNTER 2018-08-31 01:35 | Observation (INO) | payer MEDICAID, SELFPAY ==
[2018-08-31 05:08] LABS: #Eosinphils 0.4 thou/uL (0.0-0.7); #Lymphocytes 2.1 thou/uL (1.20-3.40); #Monocytes 0.5 thou/uL (0.11-0.59); #Neutrophils 4.5 thou/uL (1.40-6.50); %Basophils 0.4 % (0.0-1.0); %Eosinophils 4.7 % (0.0-10.0); %Lymphocytes 28.3 % (21.0-51.0); %Monocytes 6.6 % (0.0-10.0); %Neutrophils 60.1 % (42.0-75.0); Elliptocytes SLIGHT = 2-5 cells (100X) (0-1/hpf); Hemoglobin 6.3 g/dL (12.0-16.0); Hypochromia SLIGHT = 6-15 cells (100X) (0-5/hpf); MDiff Complete? YES; Mean Corpuscular Hemoglobin 16.3 pg (27.0-31.0); Mean Corpuscular Volume 58.2 fL (78.0-98.0); Mean Platelet Volume 6.9 fL (7.4-10.4); Microcytosis MARKED = >30 cells (100X) (0-5/hpf); Platelet Count 422 thou/uL (130-400); Platelet Morphology Comment Appears Adequate; RBC Distribution Width 18.7 % (11.5-14.5); Red Blood Cell (RBC) Count 3.91 mill/uL (4.20-5.40); White Blood Cell (WBC) Count 7.4 thou/uL (4.8-10.8)
[2018-08-31 05:30] LABS: Reflex for Review?? YES
[2018-08-31 06:29] LABS: INR-International Normal Ratio 1.2; PTT 30.4 SEC (22.9-36.1); Prothrombin Time 15.1 SEC (12.0-14.7)
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
--- NOTE | 2018-08-31 07:11 | ULT ---
TRANSVAGINAL PELVIC ULTRASOUND: INDICATIONS: Pelvic pain. COMPARISON: None. TECHNIQUE: Gagnon-scale and color Doppler with spectral Doppler images were obtained of the pelvis via a transvagi nal approach. FINDINGS: The uterus measures 10.3 x 5.8 x 6.4 cm. The endometrial stripe measures 1.22 cm, which is within no rmal limits for a premenopausal female. The right ovary measures 1.9 x 3.3 x 2.7 cm. There is normal flow to the right ovary. The left ovary measures 2.6 x 2.6 x 2.2 cm. There is trace flow demonstrated within the left ovary; however, the left ovary is not well interrogated. No free fluid is evident. The visualized bladder is unremarkable appearing. IMPRESSION: No definite acute sonographic abnormality seen within the pelvis. POS: BH
--- NOTE | 2018-08-31 07:29 | PDOC.EVN ---
Event Note - Event Note Event Note: Patient will need [facility] follow up after discharge.
--- NOTE | 2018-08-31 07:59 | PDOC.EVN ---
Event Note - Event Note Event Note: Past Chart review: Past D&C reviewed from time of D&C with Dr Manzo here with me. The D&C was simple and complex hyperplasia without atypia. EMB was sent this AM... Patient will likely need hysterectomy for persistent bleed after the ablation in 2017. [facility] to follow up after discharge
[2018-08-31] MEDS ORDERED: Acetaminophen 325 MG TAB PO PRN (08:43)
[2018-08-31] MEDS ORDERED: Senokot S 8.6-50 MG TAB PO PRN ×2 (08:43)
[2018-08-31] MEDS ORDERED: Bisacodyl 10 MG SUPP PR PRN (08:43)
[2018-08-31] MEDS ORDERED: Sodium Chloride 0.65% Nasal 44 ML BOT EA NARE PRN (08:43)
[2018-08-31] MEDS ORDERED: Loratadine 10 MG TAB PO PRN (08:43)
[2018-08-31] MEDS ORDERED: Benzonatate 100 MG CAP PO PRN (08:43)
[2018-08-31] MEDS ORDERED: Bisacodyl 5 MG TAB PO PRN ×2 (08:43)
[2018-08-31] MEDS ORDERED: cloNIDine 0.1 MG TAB PO PRN (08:43)
[2018-08-31] MEDS ORDERED: Diabetic Tussin 200 MG/10 ML UDCUP PO PRN (08:43)
[2018-08-31] MEDS ORDERED: Ondansetron PF 4 MG/2 ML Vial IVP PRN ×2 (08:43)
[2018-08-31] MEDS ORDERED: Nitroglycerin 0.4 MG TAB (25 Tab Bottle) SL PRN (08:43)
[2018-08-31] MEDS ORDERED: hydrALAZINE 20 MG/ML VIAL SLOW IVP PRN (08:43)
[2018-08-31 09:26] VITALS: BMI 34.0
[2018-08-31] MEDS: Famotidine 20 MG TAB PO SCH ×2 (09:56→20:24)
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
[2018-08-31] MEDS ORDERED: medroxyPROGESTERone Acetate 5 MG TAB PO SCH (13:30)
[2018-08-31] MEDS: Ferrous Sulfate 325 MG TAB PO SCH ×2 (15:12→20:24)
[2018-08-31] MEDS: medroxyPROGESTERone Acetate 5 MG TAB PO SCH (20:25)
[2018-09-01] MEDS: medroxyPROGESTERone Acetate 5 MG TAB PO SCH (08:00)
[2018-09-01] MEDS: Famotidine 20 MG TAB PO SCH (08:00)
[2018-09-01] MEDS: Ferrous Sulfate 325 MG TAB PO SCH (08:00)
--- NOTE | 2018-09-01 08:31 | PDOC.EVN ---
Event Note - Event Note Event Note: MOBILE DESIGNER PN S: Blleding has decreased to light spotting with provera. Denies any dizziness or palpitations. Overall feeling mch better today. O: VSS Gen: NAD CV: RR Resp: unlabored Abs: soft, nttp A: Anemia due to AUB Hbg 8 after 2 units PRBC transfusion and now light spotting. EMB pending. Pt stable for d/c home after morning CBC results and stable. Will notify IM team. Continue provera 10 mg BID for total of 7 days followed by daily provera 10 mg x 30 days. Reviewed options with pt. 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 Previously recommended definitive tx for AUB with a hysterectomy and pt amenable but had difficult social circumstance. She states that she now believes she would be able to have surgery. Outpt appt in 1 week to schedule surgery and review EMB with pt.
[2018-09-01 08:38] LABS: #Eosinphils 0.5 thou/uL (0.0-0.7); #Monocytes 0.4 thou/uL (0.11-0.59); #Neutrophils 3.3 thou/uL (1.40-6.50); %Basophils 0.7 % (0.0-1.0); %Eosinophils 7.8 % (0.0-10.0); %Monocytes 6.8 % (0.0-10.0); %Neutrophils 52.6 % (42.0-75.0); Hemoglobin 8.4 g/dL (12.0-16.0); Mean Corpuscular HGB CONC 29.5 g/dL (32.0-36.0); Mean Corpuscular Hemoglobin 18.6 pg (27.0-31.0); Mean Corpuscular Volume 63.2 fL (78.0-98.0); Mean Platelet Volume 7.2 fL (7.4-10.4); Platelet Count 398 thou/uL (130-400); RBC Distribution Width 24.1 % (11.5-14.5); White Blood Cell (WBC) Count 6.3 thou/uL (4.8-10.8)
[2018-09-01 08:53] LABS: Anion Gap 11 mmol/L (10-20); BUN (Urea Nitrogen) 9 mg/dL (7.0-18.7); Calc. Creatinine Clearance 163 mL/min (70-130); Calcium 9.3 mg/dL (7.8-10.44); Carbon Dioxide 25 mmol/L (22-29); Chloride 108 mmol/L (98-107); Estimated GFR-MDRD Greater than 90; Glucose 106 mg/dL (70-105); Potassium 3.9 mmol/L (3.5-5.1); Sodium 140 mmol/L (136-145)
--- NOTE | 2018-09-01 08:55 | PRG ---
DATE OF SERVICE: 09/01/2018 SUBJECTIVE: The patient is hospital day #2 for menorrhagia and symptomatic anemia. She was initially seen by Dr. Estrella on consult and performed endometrial biopsy, which is still pending. The patient reports this morning after beginning Provera twice a day that her bleeding has slowed down significantly. Her primary OB, Dr. Itzel Carpenter has been notified and will be coming by today to discuss further management. OBJECTIVE: VITAL SIGNS: This morning, blood pressure 105/72, temperature 98.2, pulse of 74, respiratory rate 16, and saturating 100% on room air. GENERAL: She appears to be in no acute distress. ASSESSMENT AND PLAN: The patient is a 28-year-old female with symptomatic anemia, menorrhagia, history of hyperplasia with her most recent biopsy being benign a year ago. Job ID: [id number] MTDD
[2018-09-01 09:41] LABS: Elliptocytes SLIGHT = 2-5 cells (100X) (0-1/hpf); Hypochromia MODERATE=16-30 cells (100X) (0-5/hpf); MDiff Complete? YES; Microcytosis MODERATE=15-30 cells (100X) (0-5/hpf); Ovalocytes MODERATE= 6-15 cells (100X) (0-1/hpf); Platelet Morphology Comment Appears Adequate; Polychromasia MODERATE = 3-4 cells (100X) (0-2/hpf)
[2018-09-01 11:04] VITALS: BP 102/67; TEMP 98.1
--- NOTE | 2018-09-01 16:22 | DIS ---
DATE OF ADMISSION: 08/31/2018 DATE OF DISCHARGE: 09/01/2018 CONDITION AT THE TIME OF DISCHARGE: Stable and improved. DISCHARGE DISPOSITION: Home. DISCHARGE MEDICATIONS: 1. Provera 10 mg p.o. b.i.d. for 7 days and then 10 mg daily for 30 days. 2. Ferrous sulfate 325 mg p.o. t.i.d. DISCHARGE DIAGNOSES: 1. Acute blood loss anemia. 2. Heavy menstrual abnormal vaginal bleeding. CONSULTATIONS IN-HOUSE: PHOTOLITHOGRAPHER, Dr. Estrella and Dr. Manzo. PROCEDURES DONE IN THE HOSPITAL: 1. Pelvic ultrasound, which is unremarkable for any acute or chronic changes. 2. Endometrial biopsy by Dr. Estrella, which shows disordered proliferative endometrium with glandular and stromal breakdown. PRIMARY CARE PHYSICIAN: None. HISTORY OF PRESENTING ILLNESS: Ms. Talavera is a 28-year-old female with known history of abnormal vaginal bleed and anemia secondary to that, came to the emergency room with complaints of worsening vaginal bleed. She was found to be acutely anemic with a hemoglobin down to 6.3. She was admitted to medical team with PHOTOLITHOGRAPHER consultation. Please see admission history as well as PHOTOLITHOGRAPHER consult note by Dr. Estrella from 08/31/2018 for full details. HOSPITAL COURSE: The patient was otherwise hemodynamically stable. She was transfused 2 units of packed RBCs and PHOTOLITHOGRAPHER doctors ordered a pelvic ultrasound and endometrial biopsy. She was started on Provera with improvement in her vaginal bleed. Her repeat H and H this morning is 8.4. I have received a call from her PHOTOLITHOGRAPHER physician in [facility] who is ready to take her and see her early next week. They are planning hysterectomy for her. They will be contacting the patient with regard to setting up this appointment. As of this morning, she has been cleared to discharge from PHOTOLITHOGRAPHER perspective. She was seen and examined prior to discharge. PHYSICAL EXAMINATION: This morning, VITAL SIGNS: Temperature 98.1, pulse of 77, respirations 16, saturating 96% on room air, and blood pressure 102/67. GENERAL: No acute distress. Awake, alert, and oriented x3. CHEST: Clear to auscultation bilaterally. HEART: Rate and rhythm are regular. ABDOMEN: Soft, nontender, and nondistended. Her vaginal bleeding has significantly improved. DISCHARGE INSTRUCTIONS: She is instructed to follow up with her PHOTOLITHOGRAPHER in [facility]. Provera prescriptions were provided to the patient. Job ID: [id number]
== END 2018-09-01 11:59 | disposition home or self-care (01) ==
LOC: ERS 01:35 → T4-A 06:20
PROVIDERS: ADMIT Hospitalist; ATTEND Hospitalist
PROC: 0UDB7ZX Extraction of Endometrium, Via Natural or Artificial Opening, Diagnostic (ICD-10-PCS; principal; 2018-09-01)
DX: N85.01 Benign endometrial hyperplasia (principal); N93.9 Abnormal uterine and vaginal bleeding, unspecified; D62 Acute posthemorrhagic anemia; Z98.890 Other specified postprocedural states; Z79.899 Other long term (current) drug therapy
CPT/HCPCS: 36415; 36430; 76856; 80048; 84443; 85025; 85060; 85610; 85730; 86850; 86900; 86901; 88305; 93005; G0378; P9016

== ENCOUNTER 2021-08-28 09:41 | Outpatient (CLI) | payer MEDICAID | END 2021-08-28 09:42 | disposition home or self-care (01) | LOC: DTY/OP 09:41 | DX: E11.9 Type 2 diabetes mellitus without complications (principal) | CPT/HCPCS: 97802 ==

== ENCOUNTER 2024-10-14 08:16 | Day surgery (SDC) | payer OTHER ==
[2024-10-14] MEDS ORDERED: diphenhydrAMINE 25 MG CAP PO SCH (08:30)
[2024-10-14] MEDS ORDERED: Acetaminophen 500 MG TAB ONE (08:57)
[2024-10-14] MEDS: Acetaminophen 500 MG TAB PO SCH (08:58)
[2024-10-14 13:32] VITALS: BP 99/55; TEMP 97.7
== END 2024-10-14 12:06 | disposition home or self-care (01) ==
LOC: ONC/OP 08:16
PROVIDERS: ATTEND Internal Medicine
DX: D64.9 Anemia, unspecified (principal); D69.6 Thrombocytopenia, unspecified
CPT/HCPCS: 36430; 86850; 86900; 86901; P9016

== ENCOUNTER 2024-12-23 09:38 | Day surgery (SDC) | payer OTHER ==
[~2024-12-23 09:38] MED LIST changes: -ISOVUE-370 76%-LOCM 1 ML ONE; +diphenhydrAMINE 25 MG CAP PO SCH
[2024-12-23] MEDS ORDERED: Acetaminophen 500 MG TAB ONE (11:45)
[2024-12-23] MEDS: Acetaminophen 500 MG TAB PO SCH (11:47)
[2024-12-23 14:31] VITALS: BP 117/57; TEMP 98.5
== END 2024-12-23 14:31 | disposition home or self-care (01) ==
LOC: ONC/OP 09:38
PROVIDERS: ATTEND Internal Medicine
DX: D64.9 Anemia, unspecified (principal); D69.6 Thrombocytopenia, unspecified
CPT/HCPCS: 36430; 86850; 86900; 86901; P9016